=== PATIENT | female | born 1995 | race Two or more races ===

== ENCOUNTER 2025-05-30 08:28 | Emergency (ER) | payer OTHER, MEDICAID ==
[~2025-05-30] VITALS: Ht 165.1 cm; Wt 109.4 kg
[2025-05-30 08:29] VITALS: BP 139/87; PULSE 66; RESP 18; TEMP 98; O2SAT 100
--- NOTE | 2025-05-30 09:00 | ED.PDOC ---
History of Present Illness HPI Comments This is a 29 year old female presenting to the ED with chief complaint of headaches. Patient reports that she had binge drank on Tuesday, drinking 750mL of vodka and other hard liquor, reportedly blacking out. Patient relays that she has not drank any alcohol since then, but she has been experiencing a headache with associated nausea. Patient states that she called [facility] and was advised to come to the ED for lab work. Patient notes she feels well enough to stay home instead of driving herself down to [facility] and decided to head home and hydrate herself properly. Patient denies any vomiting, tremors, chest pain, SOB, dizziness, or abdominal pain. Chief Complaint: ETOH Time Seen by MD: 08:58 Reviewed Notes: Nurses Notes, Medications, Allergies Allergies: Coded Allergies: Amoxicillin (Verified Allergy, Unknown, 05/30/25) Morphine (Verified Allergy, Unknown, 05/30/25) Information Source: Patient Mode of Arrival: Ambulatory Severity: Moderate Timing: Days Duration: Since onset Past Medical History PAST MEDICAL HISTORY: Liver Surgical History: Denies all surgeries VP PUBLIC RELATIONS History: Denies all VP PUBLIC RELATIONS Hx Family History Family History: Reviewed,noncontributory to illness Social History Smoker: Non-Smoker Alcohol: Heavy Drugs: Denies Drug Use Lives In: Home Constitutional: denies: chills, diaphoresis, fatigue, fever, malaise, sweats, weakness, others EENTM: denies: blurred vision, double vision, ear bleeding, ear discharge, ear drainage, ear pain, ear ringing, eye pain, eye redness, hearing loss, mouth pain, mouth swelling, nasal discharge, nose bleeding, nose congestion, nose pain, photophobia, tearing, throat pain, throat swelling, voice changes, others Respiratory: denies: cough, hemoptysis, orthopnea, SOB at rest, shortness of breath, SOB with excertion, stridor, wheezing, others Cardiovascular: denies: chest pain, dizzy spells, diaphoresis, Dyspnea on exertion, edema, irregular heart beat, left arm pain, lightheadedness, palpitations, PND, syncope, others Gastrointestinal: denies: abdomen distended, abdominal pain, blood streaked bowels, constipated, diarrhea, dysphagia, difficulty swallowing, hematemesis, melena, nausea, poor appetite, poor fluid intake, rectal bleeding, rectal pain, vomiting, others Genitourinary: denies: abnormal vagina bleeding, burning, dyspareunia, dysuria, flank pain, frequency, hematuria, incontinence, pain, , vagina discharge, urgency, others Neurological: reports: headache; denies: dizziness, fainting, left sided numbness, left sided weakness, numbness, paresthesia, pre-existing deficit, right sided numbness, right sided weakness, seizure, speech problems, tingling, tremors, weakness, others Musculoskeletal: denies: back pain, gout, joint pain, joint swelling, muscle pain, muscle stiffness, neck pain, others Integumetry: denies: bruises, change in color, change in hair/nails, dryness, laceration, lesions, lumps, rash, wounds, others Allergic/Immunocompromised: denies: Difficulty Healing, Frequent Infections, Hives, Itching, others Hematologic/Lymphatic: denies: anemia, blood clots, easy bleeding, easy bruising, swollen glands, others Endocrine: denies: excessive hunger, excessive sweating, excessive thirst, excessive urination, flushing, intolerance to cold, intolerance to heat, unexplained weight gain, unexplained weight loss, others Psychiatric: denies: anxiety, bipolar disorder, depression, hopeless, panic disorder, schizophrenia, sleepless, suicidal, others All Other Systems: Reviewed and Negative Physical Exam General Appearance: Moderate Distress, Normal HEENT: Normal ENT Inspection, Pharynx Normal, TMs Normal Neck: Full Range of Motion, Non-Tender, Normal, Normal Inspection Respiratory: Chest Non-Tender, Lungs Clear, No Accessory Muscle Use, No Respiratory Distress, Normal Breath Sounds Cardiovascular: No Edema, No JVD, No Murmur, No Gallop, Normal Peripheral Pulses, Regular Rate/Rhythm Breast Exam: Deferred Gastrointestinal: No Organomegaly, Non Tender, No Pulsatile Mass, Normal Bowel Sounds, Soft Genitalia: Deferred Pelvic: Deferred Rectal: Deferred Extremities: No calf tenderness, Normal capillary refill, Normal inspection, Normal range of motion, Non-tender, No pedal edema Musculoskeletal : Apperance: Normal Neurologic: Alert, program management manager II-XII nml as Tested, No Motor Deficits, Normal Affect, Normal Mood, No Sensory Deficits Cerebellar Function: Normal Reflexes: Normal Skin: Dry, Normal Color, Warm Peripheral Pulses: 3+ Radial (R), 3+ Radial (L) Lymphatic: No Adenopathy Was a procedure done? Was a procedure done?: No Differential Dx Considerations may include: Anxiety X-Ray, Labs, Meds, VS Vital Signs Date Time Temp Pulse Resp B/P (MAP) Pulse Ox O2 Delivery O2 Flow Rate FiO2 05/30/25 08:29 98.0 66 18 139/87 100 98.0 Patient alert. Had binge drinking few days ago. Vitals stable. Answering questions. No sign of any distress. Saturation pristine on room air. No leg swelling. No shortness a breath. Counseled patient on effects of drinking for 15 minutes. Was told to drink plenty of fluids. Explained to the patient. Continue monitoring. Time of 1ST Reevaluation: 09:00 Reevaluation 1ST: Improved Patient Education/Counseling: Diagnosis, Treatment Family Education/Counseling: No Family Present SEPSIS Sepsis Screen Date sepsis recognized/suspect: May 30, 2025 Time Sepsis recognized/suspect: 829 Recent Procedure: No On Antibiotic Therapy: No Respiratory Rate >20: No Heart Rate >90: No Temp<36 C (96.8 F) or >38.3 C: No SBP <90 or MAP <65 mmHG: No New Acute Mental Status Change: No Is the patient on CPAP, BIPAP,: No Vital Signs Date Time Temp Pulse Resp B/P (MAP) Pulse Ox O2 Delivery O2 Flow Rate FiO2 05/30/25 08:29 98.0 66 18 139/87 100 98.0 Departure 1 Departure Time of Disposition: 09:23 Impression: Primary Impression: Anxiety Disposition: 07 LEFT AWOL/ELOPED Condition: Good Critical Care Note Critical Care Time?: No Stability Stability form required: No Heart Score Heart Score: Heart Score Response (Comments) Value History N/A 0 EKG N/A 0 Age N/A 0 Risk Factors N/A 0 Troponin N/A 0 Total 0 I personally scribed for TOMAS SORIANO MD ([email or web address]) on 05/30/25 at 09:00. Electronically submitted by Dex Gillespie ([email or web address]). TOMAS SORIANO MD May 30, 2025 09:00
== END 2025-05-30 09:37 | disposition left against medical advice (07) ==
LOC: ER 08:28
DX: F41.9 Anxiety disorder, unspecified (principal); Z88.5 Allergy status to narcotic agent; Z88.1 Allergy status to other antibiotic agents

== ENCOUNTER 2025-06-11 09:22 | Emergency (ER) | payer OTHER, MEDICAID ==
[~2025-06-11] VITALS: Ht 165.1 cm; Wt 109.0 kg
[2025-06-11 09:32] VITALS: BP 125/77; PULSE 78; RESP 22; TEMP 98.6; O2SAT 98
--- NOTE | 2025-06-11 10:03 | ED.PDOC ---
History of present illness HPI Comments 29 y/o FMARNI, presents to the ED for CC of hypoglycemia. EMS reports, patient is coming from work where she c/o generalized weakness and tremors sudden onset, today (06/11/25). Patient reports, she did have a protein shake this morning and ate some candy when symptoms began however, experienced no relief. Per EMS, blood sugar read at 117 on glucometer. Patient denies nausea, vomiting, abdominal pain, excessive thirst, or blurred vision. No other symptoms or modifying factors present at this time. Chief Complaint: Hypoglycemia Time Seen by MD: 09:30 History of present illness: Nurses Notes, Real Estate Leasing Agent Notes, Medications, Allergies Allergies: Coded Allergies: Amoxicillin (Verified Allergy, Unknown, 05/30/25) Morphine (Verified Allergy, Unknown, 05/30/25) Information Source: Patient, Emergency Med Personnel Mode of Arrival: EMS Timing: Hours Duration: Since onset Prehospital treatment: None [place]: Shaky Symptoms: Shaky History of: Diabetes Modifying factors: Nothing Associated signs and symptoms: Tremor Past Medical History PAST MEDICAL HISTORY: Liver Surgical History: Denies all surgeries ROD PULLER AND COILER History: Denies all ROD PULLER AND COILER Hx Family History Family History: Reviewed,noncontributory to illness Social History Smoker: Non-Smoker Alcohol: Heavy Drugs: Denies Drug Use Lives In: Home Constitutional: reports: weakness, others (shakey); denies: chills, diaphoresis, fatigue, fever, malaise, sweats EENTM: denies: blurred vision, double vision, ear bleeding, ear discharge, ear drainage, ear pain, ear ringing, eye pain, eye redness, hearing loss, mouth pain, mouth swelling, nasal discharge, nose bleeding, nose congestion, nose pain, photophobia, tearing, throat pain, throat swelling, voice changes, others Respiratory: denies: cough, hemoptysis, orthopnea, SOB at rest, shortness of breath, SOB with excertion, stridor, wheezing, others Cardiovascular: denies: chest pain, dizzy spells, diaphoresis, Dyspnea on exertion, edema, irregular heart beat, left arm pain, lightheadedness, palpitations, PND, syncope, others Gastrointestinal: denies: abdomen distended, abdominal pain, blood streaked bowels, constipated, diarrhea, dysphagia, difficulty swallowing, hematemesis, melena, nausea, poor appetite, poor fluid intake, rectal bleeding, rectal pain, vomiting, others Genitourinary: denies: abnormal vagina bleeding, burning, dyspareunia, dysuria, flank pain, frequency, hematuria, incontinence, pain, , vagina discharge, urgency, others Neurological: denies: dizziness, fainting, headache, left sided numbness, left sided weakness, numbness, paresthesia, pre-existing deficit, right sided numbness, right sided weakness, seizure, speech problems, tingling, tremors, weakness, others Musculoskeletal: denies: back pain, gout, joint pain, joint swelling, muscle pain, muscle stiffness, neck pain, others Integumetry: denies: bruises, change in color, change in hair/nails, dryness, laceration, lesions, lumps, rash, wounds, others Hematologic/Lymphatic: denies: anemia, blood clots, easy bleeding, easy bruising, swollen glands, others Endocrine: denies: excessive hunger, excessive sweating, excessive thirst, excessive urination, flushing, intolerance to cold, intolerance to heat, unexp lained weight gain, unexplained weight loss, others Psychiatric: denies: anxiety, bipolar disorder, depression, hopeless, panic disorder, schizophrenia, sleepless, suicidal, others All Other Systems: Reviewed and Negative Physical Exam General Appearance: No Apparent Distress, Normal HEENT: Normal ENT Inspection, Pharynx Normal Neck: Full Range of Motion, Non-Tender, Normal, Normal Inspection Respiratory: Chest Non-Tender, Lungs Clear, No Accessory Muscle Use, No Respiratory Distress, Normal Breath Sounds Cardiovascular: No Edema, No Murmur, No Gallop, Normal Peripheral Pulses, Regular Rate/Rhythm Breast Exam: Deferred Gastrointestinal: No Organomegaly, Non Tender, No Pulsatile Mass, Normal Bowel Sounds, Soft Genitalia: Deferred Pelvic: Deferred Rectal: Deferred Extremities: No calf tenderness, Normal capillary refill, Normal inspection, Normal range of motion, Non-tender, No pedal edema Musculoskeletal : Apperance: Normal Neurologic: Alert, focus puller II-XII nml as Tested, No Motor Deficits, Normal Affect, Normal Mood, No Sensory Deficits Cerebellar Function: Normal Reflexes: Normal Skin: Dry, Normal Color, Warm Lymphatic: No Adenopathy Was a procedure done? Was a procedure done?: No Differential Diagnosis (DM) Differential Diagnosis: Hypoglycemia X-Ray, Labs, Meds, VS Vital Signs Date Time Temp Pulse Resp B/P (MAP) Pulse Ox O2 Delivery O2 Flow Rate FiO2 06/11/25 09:32 78 06/11/25 09:32 98.6 88 22 125/77 98 98.6 Time of 1ST Reevaluation: 10:00 Reevaluation 1ST: Unchanged Patient Education/Counseling: Diagnosis, Treatment Family Education/Counseling: No Family Present SEPSIS Sepsis Screen Date sepsis recognized/suspect: Jun 11, 2025 Time Sepsis recognized/suspect: 934 Recent Procedure: No On Antibiotic Therapy: No Respiratory Rate >20: Yes Heart Rate >90: Yes Temp<36 C (96.8 F) or >38.3 C: No SBP <90 or MAP <65 mmHG: No New Acute Mental Status Change: No Is the patient on CPAP, BIPAP,: No Physician Orders Electrocardigram (06/11/25 09:37) Basic Metabolic Panel (06/11/25 09:41) Complete Blood Count (06/11/25 09:41) Vital Signs Date Time Temp Pulse Resp B/P (MAP) Pulse Ox O2 Delivery O2 Flow Rate FiO2 06/11/25 09:32 78 06/11/25 09:32 98.6 88 22 125/77 98 98.6 Departure 1 Departure Time of Disposition: 14:00 (Patient is feeling better and would like to go home. Will discharge home.) Impression: Primary Impression: Hypoglycemia Disposition: 01 HOME / SELF CARE / HOMELESS Condition: Stable Discharged With: Self Critical Care Note Critical Care Time?: No Stability Stability form required: No Heart Score Heart Score: Heart Score Response (Comments) Value History N/A 0 EKG N/A 0 Age N/A 0 Risk Factors N/A 0 Troponin N/A 0 Total 0 I personally scribed for LIZET KOROMA MD ([email or web address]) on 06/11/25 at 10:03. Electronically submitted by Lluvia Viveros ([email or web address]). I personally scribed for LIZET KOROMA MD ([email or web address]) on 06/11/25 at 10:07. Electronically submitted by Lluvia Viveros ([email or web address]). LIZET KOROMA MD Jun 11, 2025 10:03
--- NOTE | 2025-06-13 13:06 | ECG ---
[facility] Test Date: 2025-06-11 Test Time: 09:32:42 Pat Name: GLORIA CROSS Department: ED Room: Gender: F Strategic Manager: emma : 1995 Requested By: EMERGENCY EMERGENCY Order Number: [id number] Reading MD: Junior Guthrie Measurements Intervals [place] Rate: 78 P: 68 SD: 141 QRS: 75 QRSD: 82 T: 44 QT: 371 QTc: 423 Interpretive Statements Sinus rhythm Borderline T abnormalities, anterior leads Electronically Signed On 06-17-2025 22:30:50 PDT by Junior Guthrie Please click the below link to view image of tracing.
== END 2025-06-11 15:11 | disposition home or self-care (01) ==
LOC: EDBD 09:22 → ER 09:22 → EDUNIT# 09:22 → ER 15:11
DX: E16.2 Hypoglycemia, unspecified (principal); R53.1 Weakness; R25.1 Tremor, unspecified; Z88.0 Allergy status to penicillin; Z88.5 Allergy status to narcotic agent
CPT/HCPCS: 82947; 93005

== ENCOUNTER 2025-10-03 08:53 | Emergency (ER) | payer OTHER, MEDICAID ==
[~2025-10-03] VITALS: Ht 154.9 cm; Wt 114.0 kg
--- NOTE | 2025-10-03 09:18 | ED.PDOC ---
HPI (NEURO) HPI Comments This is a 29 year old female presenting to the ED with chief complaint of headache. Patient reports that she has been experiencing a headache with associated dizzy spells for the past week, worsening over time. Patient relays that she is currently 19 weeks . Patient states she followed up with [facility] today and was advised to come to the ED for further evaluation. Patient denies any chest pain, N/V, SOB, fever, chills, or syncope. Chief Complaint: Headache Time Seen by MD: 09:16 Reviewed Notes: Nurses Notes, Medications, Allergies Information Source: Patient Mode of Arrival: Ambulatory Severity: Moderate Dizziness/Weakness Severity: Does not affect activitie Headache Severity: Moderate Timing: Weeks Duration: Since onset Prehospital treatment: None Headache Quality: Aching Headache Location: Generalized Onset: At rest Circumstances: Spontaneous Past Medical History PAST MEDICAL HISTORY: Anemia Past Medical History (Other): Hypoglycemia Surgical History: Cholecystectomy, Surgical History (Other): Gastric bypass STATION CHIEF History: Denies all STATION CHIEF Hx Family History Family History: Reviewed,noncontributory to illness, Family hx of DM, Family hx of Kidney deandre Social History Smoker: Non-Smoker Alcohol: Denies ETOH Use Drugs: Denies Drug Use Lives In: Home Constitutional: denies: chills, diaphoresis, fatigue, fever, malaise, sweats, weakness, others EENTM: denies: blurred vision, double vision, ear bleeding, ear discharge, ear drainage, ear pain, ear ringing, eye pain, eye redness, hearing loss, mouth pain, mouth swelling, nasal discharge, nose bleeding, nose congestion, nose pa in, photophobia, tearing, throat pain, throat swelling, voice changes, others Respiratory: denies: cough, hemoptysis, orthopnea, SOB at rest, shortness of breath, SOB with excertion, stridor, wheezing, others Cardiovascular: reports: dizzy spells; denies: chest pain, diaphoresis, Dyspnea on exertion, edema, irregular heart beat, left arm pain, lightheadedness, palpitations, PND, syncope, others Gastrointestinal: denies: abdomen distended, abdominal pain, blood streaked bowels, constipated, diarrhea, dysphagia, difficulty swallowing, hematemesis, m kenyon, nausea, poor appetite, poor fluid intake, rectal bleeding, rectal pain, vomiting, others Genitourinary: reports: ; denies: abnormal vagina bleeding, burning, dyspareunia, dysuria, flank pain, frequency, hematuria, incontinence, pain, vagina discharge, urgency, others Neurological: reports: headache; denies: dizziness, fainting, left sided numbness, left sided weakness, numbness, paresthesia, pre-existing deficit, right sided numbness, right sided weakness, seizure, speech problems, tingling, tremors, weakness, others Musculoskeletal: denies: back pain, gout, joint pain, joint swelling, muscle pain, muscle stiffness, neck pain, others Integumetry: denies: bruises, change in color, change in hair/nails, dryness, laceration, lesions, lumps, rash, wounds, others Allergic/Immunocompromised: denies: Difficulty Healing, Frequent Infections, Hives, Itching, others Hematologic/Lymphatic: denies: anemia, blood clots, easy bleeding, easy bruising, swollen glands, others Endocrine: denies: excessive hunger, excessive sweating, excessive thirst, excessive urination, flushing, intolerance to cold, intolerance to heat, unexplained weight gain, unexplained weight loss, others Psychiatric: denies: anxiety, bipolar disorder, depression, hopeless, panic disorder, schizophrenia, sleepless, suicidal, others All Other Systems: Reviewed and Negative Physical Exam General Appearance: No Apparent Distress HEENT: Normal ENT Inspection, Pharynx Normal, TMs Normal Neck: Full Range of Motion, Non-Tender, Normal, Normal Inspection Respiratory: Chest Non-Tender, Lungs Clear, No Accessory Muscle Use, No Respiratory Distress, Normal Breath Sounds Cardiovascular: No Edema, No JVD, No Murmur, No Gallop, Normal Peripheral Pulses, Regular Rate/Rhythm Breast Exam: Deferred Gastrointestinal: Non Tender, No Pulsatile Mass, Normal Bowel Sounds, Soft, Other (Gravid uterus) Genitalia: Deferred Pelvic: Deferred Rectal: Deferred Extremities: No calf tenderness, Normal capillary refill, Normal inspection, Normal range of motion, Non-tender, No pedal edema Musculoskeletal : Apperance: Normal Neurologic: Alert, legal officer II-XII nml as Tested, No Motor Deficits, Normal Affect, Normal Mood, No Sensory Deficits Cerebellar Function: Normal Reflexes: Normal Skin: Dry, Normal Color, Warm Lymphatic: No Adenopathy EKG EKG : Pulse Rate (adult): 80 [place]: Normal Cardiac Rhythm: NSR Block: None Hypertrophy: None ST: Normal Was a procedure done? Was a procedure done?: No X-Ray, Labs, Meds, VS Vital Signs Date Time Temp Pulse Resp B/P (MAP) Pulse Ox O2 Delivery O2 Flow Rate FiO2 10/03/25 10:11 98.6 68 18 104/53 (70) 100 98.6 10/03/25 09:18 80 10/03/25 09:03 80 10/03/25 08:56 98.1 83 18 111/55 100 98.1 Lab Test 10/03/25 09:47 10/03/25 09:45 10/03/25 09:07 Range/Units White Blood Count 8.5 4.4-10.8 10^3/uL Red Blood Count 4.17 4.0-5.20 10^6/uL Hemoglobin 10.4 L 12.2-16.2 g/dL Hematocrit 32.3 L 36.0-46.0 % Mean Corpuscular Volume 77.6 L 80.0-100.0 fL Mean Corpuscular Hemoglobin 25.1 L 28.0-32.0 pg Mean Corpuscular Hemoglobin Concent 32.3 32.0-36.0 g/dL Red Cell Distribution Width 17.8 H 11.8-14.3 % Platelet Count 304 140-450 10^3/uL Mean Platelet Volume 7.8 6.9-10.8 fL Neutrophils (%) (Auto) 64.0 37.0-80.0 % Lymphocytes (%) (Auto) 26.2 10.0-50.0 % Monocytes (%) (Auto) 8.7 0.0-12.0 % Eosinophils (%) (Auto) 0.6 0.0-7.0 % Basophils (%) (Auto) 0.5 0.0-2.0 % Neutrophils # (Auto) 5.5 1.6-8.6 10 ^3/uL Lymphocytes # (Auto) 2.2 0.4-5.4 10 ^3/uL Monocytes # (Auto) 0.7 0-1.3 10 ^3/uL Eosinophils # (Auto) 0.1 0-0.8 10 ^3/uL Basophils # (Auto) 0 0-0.2 10 ^3/uL Nucleated Red Blood Cells 0.1 % Sodium Level 139 136-145 mmol/L Potassium Level 3.9 3.5-5.1 mmol/L Chloride Level 106 98-107 mmol/L Carbon Dioxide Level 25 20-31 mmol/L Anion Gap 8 5-15 Blood Urea Nitrogen 10 9-23 mg/dL Creatinine 0.74 0.550-1.02 mg/dL Glomerular Filtration Rate Calc 111 >90 mL/min BUN/Creatinine Ratio 13.5 10.0-20.0 Serum Glucose 74 74-106 mg/dL Calcium Level 9.3 8.7-10.4 mg/dL Urine Color Yellow Yellow Urine Clarity Turbid H Clear Urine pH 6.0 5.0-9.0 Urine Specific [place] 1.030 1.001-1.035 Urine Protein Trace H Negative Urine Ketones Negative Negative Urine Blood Negative Negative /uL Urine Nitrite Negative Negative Urine Bilirubin Negative Negative Urine Urobilinogen Normal Negative mg/dL Urine Leukocyte Esterase Negative Negative /uL Urine RBC 1 0 - 4 /hpf Urine Microscopic WBC 2 0-5 /HPF Urine Squamous Epithelial Cells Mod <5 /hpf Urine Bacteria Few H None Seen /hpf Urine Mucus Few None Seen Urine Glucose Normal Normal mg/dL POC Glucose 105 70-106 mg/dl OB US indicates: 1. IUP single live fetus at 18 weeks and 5 days AUA corresponding to an ANTOINE of 03/01/2026. 2. No abnormality detected. The CBC shows mild anemia with a hemoglobin of 10.4 The urine test is negative The patient's chemistry panel is within normal limits at this time The patient is being discharged and will follow up with the primary care doctor The patient will return to the emergency department's condition worsens Images Reviewed?: Images reviewed and evaluated by me Time of 1ST Reevaluation: 10:48 Reevaluation 1ST: Improved Patient Education/Counseling: Diagnosis, Treatment, Prognosis, Need For Follow Up Family Education/Counseling: No Family Present Departure 1 Departure Time of Disposition: 10:47 Impression: Primary Impression: Dizziness Additional Impression: Qualified Codes: Z3A.18 - 18 weeks gestation of Disposition: 01 HOME / SELF CARE / HOMELESS Condition: Fair Discharged With: Self Critical Care Note Critical Care Time?: No Stability Stability form required: No Heart Score Heart Score: Heart Score Response (Comments) Value History N/A 0 EKG N/A 0 Age N/A 0 Risk Factors N/A 0 Troponin N/A 0 Total 0 I personally scribed for HUEY SUBRAMANIAN MD ([email or web address]) on 10/03/25 at 09:18. Electronically submitted by Dex Gillespie ([email or web address]). I personally scribed for HUEY SUBRAMANIAN MD ([email or web address]) on 10/03/25 at 10:23. Electronically submitted by Dex Gillespie ([email or web address]). HUEY SUBRAMANIAN MD Oct 03, 2025 09:18
[2025-10-03 10:00] LABS: Hematocrit 32.3 % (36.0-46.0); Mean Corpuscular Volume 77.6 fL (80.0-100.0)
[2025-10-03 10:02] LABS: Hemoglobin 10.4 g/dL (12.2-16.2); Mean Corpuscular Hemoglobin 25.1 pg (28.0-32.0); Nucleated Red Blood Cells % 0.1 %
--- NOTE | 2025-10-03 10:06 | DVH ---
EXAM: US OB ULTRASOUND COMP GTR 14 WKS HISTORY: dizziness TECHNIQUE: Multiple real-time grayscale images of the gravid uterus with duplex Doppler color flow and M-mode spectral analysis. COMPARISON: None FINDINGS: IUP single live fetus at 18 weeks and 5 days average ultrasound age (AUA) based on composite averages of the BPD, head circumference, abdominal circumference and femur length MEASUREMENTS: BPD: 4.25 cm GA: 18w 6d HC: 15.89 cm GA: 18w 5d AC: 13.89 cm GA: 19w 2d FL: 2.69 cm GA: 18w 1d Estimated weight 257 grams; 15 percentile. heart rate 132 beats per minute EVARISTO is subjectively within normal limits cm, MVP 3.7 ANATOMIC SURVEY: Limited assessment of anatomy secondary to early gestational age. Grossly, stomach and bladder are within normal limits. Additional structures are suboptimally visualized. Breech Presentation Grade 1, anterior placenta without previa or abruption Cervix is closed measuring 3.7 cm IMPRESSION: 1. IUP single live fetus at 18 weeks and 5 days AUA corresponding to an ANTOINE of 03/01/2026. 2. No abnormality detected.
[2025-10-03 10:07] LABS: Chloride 106 mmol/L (98-107); Potassium 3.9 mmol/L (3.5-5.1); Sodium 139 mmol/L (136-145)
[2025-10-03 10:08] LABS: Anion Gap 8 (5-15); Carbon Dioxide 25 mmol/L (20-31)
[2025-10-03 10:09] LABS: Calcium 9.3 mg/dL (8.7-10.4)
[2025-10-03 10:11] VITALS: BP 104/53; PULSE 68; RESP 18; TEMP 98.6; O2SAT 100
[2025-10-03 10:13] LABS: Glucose 74 mg/dL (74-106)
[2025-10-03 10:14] LABS: BUN/Creatinine Ratio 13.5 (10.0-20.0); Blood Urea Nitrogen 10 mg/dL (9-23)
[2025-10-03 10:30] LABS: Urine Protein, UAD TRACE (Negative)
--- NOTE | 2025-10-04 10:17 | ECG ---
[facility] Test Date: 2025-10-03 Test Time: 09:03:24 Pat Name: GLORIA CROSS Department: Room: Gender: F Air Sealing Technician: FRANKIE : 1995 Requested By: HUEY SUBRAMANIAN Order Number: [id number] Reading MD: Junior Guthrie Measurements Intervals [place] Rate: 80 P: 56 SC: 138 QRS: 45 QRSD: 86 T: 33 QT: 365 QTc: 421 Interpretive Statements Sinus rhythm Electronically Signed On 10-10-2025 18:41:47 PST by Junior Guthrie Please click the below link to view image of tracing.
== END 2025-10-03 11:03 | disposition home or self-care (01) ==
LOC: ER 08:53
DX: O26.892 Other specified pregnancy related conditions, second trimester (principal); Z90.49 Acquired absence of other specified parts of digestive tract; Z3A.19 19 weeks gestation of pregnancy
CPT/HCPCS: 36415; 76805; 80048; 81001; 82947; 82962; 85025; 93005